=== PATIENT | female | born 1950 | race Caucasian/White ===

== ENCOUNTER 2019-01-04 10:37 | Emergency (ER) | payer MEDICARE ==
[2019-01-04] MEDS ORDERED: Ketorolac Tromethamine 30 MG/ML VIAL ONE (11:28)
--- NOTE | 2019-01-04 11:37 | RAD ---
Exam:Left hip 2 views HISTORY: Pain COMPARISON: None FINDINGS: Contour of the femoral head is maintained. Hip joint spaces preserved. No fracture. Visuali zed left bony pelvis is unremarkable. IMPRESSION: Unremarkable 2 views left hip. No fracture.
--- NOTE | 2019-01-04 11:39 | RAD ---
Exam: 3 views of lumbar spine HISTORY: Low back pain. Comparison none FINDINGS: 5 lumbar type vertebra. Lumbar spine vertebral body height is maintained. No fracture. Ther e is bone demineralization. With regards lumbar vertebra, no spondylolisthesis or spondylolysis. Hypertrophic changes in the post erior elements at L4-L5 and L5-S1. There are degenerative changes of the distal thoracic spine and the thoracolumbar junction. Atheroscl erosis of a nonaneurysmal aorta. IMPRESSION: 1. Degenerative changes of the distal thoracic spine, thoracolumbar junction with loss of disc space height and osteophyte formation, incompletely evaluated. 2. Hypertrophic changes involving the posterior elements of the lower lumbar spine.
== END 2019-01-04 12:06 | disposition home or self-care (01) ==
LOC: ERS 10:37
DX: M54.5 Low back pain (principal); F41.9 Anxiety disorder, unspecified; F32.9 Major depressive disorder, single episode, unspecified; F17.210 Nicotine dependence, cigarettes, uncomplicated; Z79.899 Other long term (current) drug therapy
CPT/HCPCS: 72100; 96372; J1885

== ENCOUNTER 2019-05-09 07:29 | Emergency (ER) | payer MEDICARE ==
[2019-05-09] MEDS ORDERED: Ketorolac Tromethamine 60 MG/2 ML VIAL ONE (08:23)
[2019-05-09] MEDS ORDERED: Fentanyl 100 MCG/2 ML VIAL ONE (08:24)
== END 2019-05-09 08:47 | disposition home or self-care (01) ==
LOC: ERS 07:29
DX: M54.41 Lumbago with sciatica, right side (principal); F17.210 Nicotine dependence, cigarettes, uncomplicated; F41.9 Anxiety disorder, unspecified; F32.9 Major depressive disorder, single episode, unspecified
CPT/HCPCS: 96372; 99283; J1885; J3010

== ENCOUNTER 2022-12-08 13:06 | Outpatient (CLI) | payer OTHER | END 2022-12-08 13:07 | disposition home or self-care (01) | LOC: SCSMRI 13:06 | PROVIDERS: ATTEND Otolaryngology | DX: H90.5 Unspecified sensorineural hearing loss (principal); J34.89 Other specified disorders of nose and nasal sinuses; R90.89 Other abnormal findings on diagnostic imaging of central nervous system | CPT/HCPCS: 70553 ==

== ENCOUNTER → 2022-12-21 | Day surgery (SDC) | payer OTHER ==
[2022-12-21 09:04] LABS: INR-International Normal Ratio 1.1; Prothrombin Time 14.5 sec (12.0-14.7)
[2022-12-21 09:05] LABS: PTT 34.3 sec (22.9-36.1)
== END ==
LOC: CT 08:32
PROVIDERS: ATTEND Internal Medicine
DX: C93.10 Chronic myelomonocytic leukemia not having achieved remission (principal); D69.6 Thrombocytopenia, unspecified; K44.9 Diaphragmatic hernia without obstruction or gangrene; I10 Essential (primary) hypertension; E78.00 Pure hypercholesterolemia, unspecified; Z96.649 Presence of unspecified artificial hip joint; Z90.710 Acquired absence of both cervix and uterus; Z79.899 Other long term (current) drug therapy
CPT/HCPCS: 20225; 77002; 85097; 85610; 85730; 88184; 88185; 88189; 88237; 88264; 88280; 88305; 88313; 88341; 88342

== ENCOUNTER 2023-01-13 18:41 | Emergency (ER) | payer OTHER ==
[2023-01-13] MEDS ORDERED: HYDROcodone/Acetaminophen 5/325 mg Tablet ONE (20:38)
== END 2023-01-13 21:02 | disposition home or self-care (01) ==
LOC: ERS 18:41
DX: S82.001A Unspecified fracture of right patella, initial encounter for closed fracture (principal); W54.1XXA Struck by dog, initial encounter; Z87.891 Personal history of nicotine dependence

== ENCOUNTER 2023-04-30 16:12 | Outpatient (CLI) | payer OTHER | END 2023-04-30 16:13 | disposition home or self-care (01) | LOC: BICRAD 16:12 | PROVIDERS: ATTEND Internal Medicine | DX: C93.10 Chronic myelomonocytic leukemia not having achieved remission (principal); J90 Pleural effusion, not elsewhere classified; R16.0 Hepatomegaly, not elsewhere classified | CPT/HCPCS: 71046; 80053 ==

== ENCOUNTER 2023-06-23 11:19 | Outpatient (CLI) | payer OTHER | END 2023-06-23 11:20 | disposition home or self-care (01) | LOC: RAD 11:19 | PROVIDERS: ATTEND Internal Medicine | DX: C93.10 Chronic myelomonocytic leukemia not having achieved remission (principal) | CPT/HCPCS: 71046; 80053 ==

== ENCOUNTER 2024-12-05 14:01 | Outpatient (CLI) | payer OTHER | END 2024-12-05 14:02 | disposition home or self-care (01) | LOC: BICCT 14:01 | PROVIDERS: ATTEND Family Medicine | DX: Z12.2 Encounter for screening for malignant neoplasm of respiratory organs (principal); Z87.891 Personal history of nicotine dependence | CPT/HCPCS: 71271; 77063; 77067; 77080 ==